=== PATIENT | male | born 1995 | race Caucasian/White ===

== ENCOUNTER 2016-10-11 14:46 | Emergency (ER) | payer BC ==
[2016-10-11 16:15] VITALS: BP 138/80
--- NOTE | 2016-10-11 16:36 | UC ---
Skin Complaint HPI - HPI Summary HPI Summary: patient has had cracking in the corners of his mouth the past two weeks, now has developed some red irritation in the corners of his mouth. - History of Current Complaint Chief Complaint: UCSkin Time Seen by Provider: 10/11/16 16:06 Stated Complaint: SKIN COMPLAINT Hx Obtained From: Patient Onset/Duration: Sudden Onset, Lasting Weeks Skin Exposure Onset/Duration: Weeks Ago Timing: Constant Onset Severity: Mild Current Severity: Mild Location: Discrete - mouth Character: Redness, Painful Aggravating: Nothing Alleviating: Nothing - Allergy/Home Medications Allergies/Adverse Reactions: Allergies Allergy/AdvReac Type Severity Reaction Status Date / Time No Known Allergies Allergy Verified 10/11/16 16:15 Home Medications: Home Medications Omeprazole CAP* [Prilosec CAP* 20 MG] 20 mg PO DAILY 10/11/16 [History Confirmed 10/11/16] Review of Systems Constitutional: Negative Skin: Other - cracks in mouth Eyes: Negative ENT: Negative Respiratory: Negative Cardiovascular: Negative Gastrointestinal: Negative Genitourinary: Negative Motor: Negative Neurovascular: Negative Musculoskeletal: Negative Neurological: Negative Psychological: Negative All Other Systems Reviewed And Are Negative: Yes PMH/Surg Hx/FS Hx/Imm Hx Previously Healthy: Yes - Surgical History Surgical History: Yes Surgery Procedure, Year, and Place: esphogeal stretching x 8 - Family History Known Family History: Negative: Cardiac Disease, Hypertension - Social History Alcohol Use: Weekly Substance Use Type: Marijuana Substance Use Comment - Amount & Last Used: weekly usage Smoking Status (MU): Never Smoked Tobacco Physical Exam Triage Information Reviewed: Yes Appearance: Well-Appearing, Well-Nourished, Pain Distress Vital Signs: Initial Vital Signs Temp 98.2 F 10/11/16 16:05 Pulse 55 10/11/16 16:05 Resp 16 10/11/16 16:05 BP 138/80 10/11/16 16:05 Pulse Ox 100 10/11/16 16:05 Vital Signs Reviewed: Yes Eye Exam: Normal Eyes: Positive: Conjunctiva Clear ENT Exam: Normal ENT: Positive: Hearing grossly normal, Pharynx normal, TMs normal Dental Exam: Normal Dental: Positive: Other: - fissures on corners of lips, no thrush noted in mouth. small erd bumps around corners of lip Neck exam: Normal Neck: Positive: Supple, Nontender, No Lymphadenopathy Respiratory Exam: Normal Respiratory: Positive: Chest non-tender, Lungs clear, Normal breath sounds Cardiovascular Exam: Normal Cardiovascular: Positive: RRR, No Murmur, Pulses Normal Abdominal Exam: Normal Abdomen Description: Positive: Nontender, No Organomegaly, Soft Bowel Sounds: Positive: Present Musculoskeletal Exam: Normal Musculoskeletal: Positive: Strength Intact, ROM Intact Neurological Exam: Normal Psychological Exam: Normal Skin: Positive: rashes - around mouth Course/Dx - Course Course Of Treatment: hx obtained, exam performed, meds reviewed, treated for chelitis - Differential Diagnoses - Skin Complaint Differential Diagnoses: Abscess, Allergic Reaction, Cellulitis, Contact Dermatitis, Urticaria - Diagnoses Provider Diagnoses: chelitis Discharge - Discharge Plan Condition: Stable Disposition: HOME Prescriptions: Mupirocin 2% OINT* [Bactroban 2 % Oint*] 1 applic TOPICAL BID #1 tube Additional Instructions: Angular cheilitis is a chronic inflammatory condition of the corners of the mouth. Usually associated with a fungal (Candidal) or bacterial (Staphylococcal ) infection, those affected may also have thrush (oral candidiasis). The areas are generally slightly painful. The condition can last from days to months, depending upon whether or not the affected person seeks treatment. Angular cheilitis may affect people of all ages. Chronic pooling of saliva encourages fungal and bacterial growth, and patients who are immunocompromised, have undergone head and neck radiation, or have diabetes mellitus are also prone to this condition. Patients who are predisposed to this condition also may have problems with: * Iron deficiency * Vitamin B12 deficiency * Folate deficiency * Drooping of the corners of the mouth caused by dentures that do not adequately support the facial musculature Signs and Symptoms Angular cheilitis can be found in the corners of the mouth. A patient with angular cheilitis may notice: * Cracking and fissuring of the corners of the mouth, with redness * Ulceration * Drainage of pus * Tissue softness and tenderness Treatment: keep the area moist with vaseline and use the ointement twice a day I recommend taking a Vit B12 supplement daily.
== END 2016-10-11 16:40 | disposition home or self-care (01) ==
LOC: UCCORT 14:46
DX: K13.0 Diseases of lips (principal)
CPT/HCPCS: 99202; G0463